=== PATIENT | female | born 1965 | race Caucasian/White ===

== ENCOUNTER 2016-12-28 08:04 | Day surgery (SDC) | payer OTHER ==
[~2016-12-28 08:04] MED LIST: Lactated Ringers 1,000 ML IV SCH
[2016-12-28] MEDS ORDERED: fentaNYL 100 MCG/2 ML SDV ONE (09:35)
[2016-12-28] MEDS ORDERED: Propofol 200 MG/20 ML SDV ONE ×2 (09:35→10:35)
[2016-12-28] MEDS ORDERED: Midazolam Oral Soln 10 MG/5 ML UD Cup PO ONE (09:36)
[2016-12-28 11:54] VITALS: BP 117/64
[2016-12-28] MEDS ORDERED: Lactated Ringers 0 ML ONE (12:17)
--- NOTE | 2016-12-28 15:21 | OR ---
PREOPERATIVE DIAGNOSES: 1. Severe constipation. 2. Bright red blood per rectum. POSTOPERATIVE DIAGNOSES: 1. Proctitis torturous. 2. Tortuous colon, inability to obtain cecum. PROCEDURE PROPOSED: Total flexible colonoscopy. PROCEDURE DONE: Limited colonoscopy to transverse colon with rectal biopsies. INDICATION: This is a 51-year-old female with severe constipation and also has bright red blood per rectum without painful defecation. I was felt that she should be colonoscoped. This will be her 1st colonoscopy. TECHNIQUE: The patient was brought to the endoscopy suite and placed in left lateral decubitus position. She was sedated per [employer] with propofol. The flexible video colonoscope was then passed transanally and under visualization, advanced through a tortuous colon. There seemed to be multiple twists and turns. I was able to get beyond the splenic flexure into the transverse colon and had difficulty advancing the scope beyond that, therefore, I felt that we would abort at this point, and the examination revealed a normal transverse, descending, and sigmoid colon; however, the rectum revealed significant inflammation with the appearance of almost an ulcerative colitis with some extra mucus and certainly could be the source of her bleeding and mucusy discharge that she was having. Multiple biopsies were taken from the rectum, this involved the lower 12 cm, everything above that appeared normal. The endoscope was then withdrawn. She tolerated procedure well. IMPRESSION: 1. Significant proctitis, biopsies pending. 2. Tortuous colon, likely contributing to constipation. PLAN: At this point, I would like to initially treat her with cortisone retention enemas nightly and follow up with her in the clinic in 1 month to see how she is doing symptomatically. [facility] to see if there is a particular hang up in her colon. She did have a CAT scan recently that was normal and at some point, we may need to do a barium enema to get a look at the remainder of her colon. I will follow up with her in the office. SCM: 12/28/2016 11:04:05 MODL: 12/28/2016 15:12:20 /[id number]
== END 2016-12-28 14:12 | disposition home or self-care (01) ==
LOC: VM.SDS 08:04
PROVIDERS: ATTEND Surgery
DX: K62.89 Other specified diseases of anus and rectum (principal); Q43.8 Other specified congenital malformations of intestine; Z88.0 Allergy status to penicillin; Z98.51 Tubal ligation status; Z98.890 Other specified postprocedural states; Z79.899 Other long term (current) drug therapy
CPT/HCPCS: 45380; A9270; J2704; J3010; J7120

== ENCOUNTER 2017-06-30 20:57 | Emergency (ER) | payer OTHER ==
[2017-06-30 21:10] VITALS: BP 123/75
[2017-06-30] MEDS ORDERED: HYDROmorphone 1 MG/ML Syringe IM ONE (21:26)
[2017-06-30] MEDS ORDERED: Ibuprofen 200 MG Tab PO ONE (21:27)
--- NOTE | 2017-07-01 08:47 | ER ---
Date of Service: 06/30/2017 SUBJECTIVE: Teresa presents to the emergency room with complaints of cervical spinal pain with radiation into her left posterior shoulder area. She states that she woke up with the symptoms several days ago. She states that initially the discomfort was radiating down into her left deltoid/biceps area and also was causing some numbness in her hand. She states that the discomfort is worse with movement of the cervical spine. She states it is particularly debilitating with flexion and extension. The patient states that she has difficulty with getting out of bed and ask for the help of her son to help with getting out of bed. PAST MEDICAL HISTORY: 1. Chronic constipation. 2. Chronic low back pain. 3. Migraine headaches. 4. Insomnia. MEDICATIONS: 1. Linzess. 2. Advil. 3. Chantix. ALLERGIES: Penicillin. REVIEW OF SYSTEMS: Please see history of present illness. Denies any cervical spinal trauma. She denies any chest pain or shortness of breath. She states that the discomfort in her neck is worse with movement particularly flexion and extension of the neck. Remainder of her physical examination is within normal limits. PHYSICAL EXAMINATION: General: This is a 52-year-old female patient, in [id number] amount of distress. Vital Signs: Blood pressure is 123/75, heart rate is 71, temp is 35.5, respiratory rate is 20, O2 saturations 100% on room air. Skin: Warm, pink, and dry. HEENT: Head is normocephalic, atraumatic. Mouth: Oral mucosa is moist. Cervical Spine: She does have increased discomfort in comfort with flexion and extension of the cervical spine. Also was not able to reproduce the discomfort with manipulation of the shoulder. Neurovascular, circulation, sensation, and motor function all within normal limits in the distal portion of her left upper extremity. EMERGENCY ROOM COURSE: The patient was given injection of Dilaudid 1 mg IM, Norflex 60 mg IM, and Benadryl 600 mg p.o. She remained stable in my care in the emergency room. ASSESSMENT: Cervical spinal pain with left upper extremity radiculopathy. PLAN: The patient was given a series of exercises that she can do to help with the discomfort. She was given a referral to physical therapy. [facility] 5/325 with instructions to take 1 every 4 to 6 hours as needed for pain. Also, was prescribed Flexeril 10 mg tablets with instructions to take one 3 times daily as needed for spasm in addition ibuprofen 600 mg every 6 hours. She was advised to mobilize her neck as much as possible and did explain the pathophysiology of neck pain with radicular symptomatology. All questions were answered. MWK: 06/30/2017 21:49:13 MODL: 07/01/2017 02:15:36 /[id number]
== END 2017-06-30 21:50 | disposition home or self-care (01) ==
LOC: VM.ED 20:57
DX: M54.12 Radiculopathy, cervical region (principal); G47.00 Insomnia, unspecified; Z88.0 Allergy status to penicillin
CPT/HCPCS: 96372; 99283; A9270; J1170; J2360